=== PATIENT | male | born 1990 | race Hispanic/Latino ===

== ENCOUNTER 2019-02-04 20:09 | Emergency (ER) | payer OTHER ==
[2019-02-04] MEDS ORDERED: KETOROLAC TROMETHAMINE 60 MG/2 ML VIAL ONE (20:50)
== END 2019-02-04 21:18 | disposition home or self-care (01) ==
LOC: EDH 20:09
DX: R51 Headache (principal); R41.0 Disorientation, unspecified
CPT/HCPCS: 70450; 96372; 99284; J1885